=== PATIENT | female | born 2000 | race Hispanic/Latino ===

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

== ENCOUNTER 2019-01-25 17:49 | Emergency (ER) | payer MEDICAID, OTHER ==
[2019-01-25 18:15] LABS: BASOPHILS % (AUTO) 0.3 % (0.0-5.0); EOSINOPHILS % (AUTO) 2.3 % (0.0-8.0); HEMATOCRIT 38.9 % (36-48); LYMPHOCYTES % (AUTO) 34.5 % (21.0-51.0); MEAN CORPUSCULAR HEMOGLOBIN 29.4 pg (27.0-33.0); MEAN CORPUSCULAR HGB CONC 33.2 g/dL (32.0-36.0); MEAN CORPUSCULAR VOLUME 88.4 fL (80-100); MONOCYTES % (AUTO) 8.7 % (3.0-13.0); NEUTROPHILS % (AUTO) 54.2 % (40.0-77.0); PLATELET COUNT (AUTO) 309 K/uL (130-400); RED CELL DISTRIBUTION WIDTH 13.9 % (11.0-15.5)
[2019-01-25 18:23] LABS: CREATININE 0.8 mg/dL (0.5-1.5)
[2019-01-25 18:28] LABS: ALBUMIN 3.7 g/dL (3.5-5.0); BILIRUBIN,TOTAL 0.3 mg/dL (0.2-1.0); TOTAL PROTEIN, SERUM 7.7 g/dL (6.0-8.3)
[2019-01-25] MEDS ORDERED: AZITHROMYCIN 250 MG TABLET PO ONE (18:35)
[2019-01-25] MEDS ORDERED: CEFTRIAXONE SODIUM 500 MG VIAL ONE (18:35)
[2019-01-25] MEDS ORDERED: ACETAMINOPHEN EXTRA STRENGTH 500 MG TABLET ONE (18:36)
[2019-01-25 19:44] LABS: APPEARANCE,URINE Clear (CLEAR); BILIRUBIN,URINE Negative (NEGATIVE); COLOR,URINE Yellow (YELLOW); GLUCOSE, URINE (UA) Negative (NEGATIVE); KETONES,URINE Negative (NEGATIVE); LEUKOCYTE ESTERASE ,URINE Negative (NEGATIVE); NITRATE,URINE Negative (NEGATIVE); OCCULT BLOOD,URINE Negative (NEGATIVE); PROTEIN,URINE Negative (NEGATIVE)
[2019-01-25 19:45] LABS: HCG,QUAL RESULT NEGATIVE (NEGATIVE)
== END 2019-01-25 19:56 | disposition home or self-care (01) ==
LOC: EDH 17:49
DX: R10.2 Pelvic and perineal pain (principal); R11.0 Nausea; Z72.0 Tobacco use; Z98.890 Other specified postprocedural states
CPT/HCPCS: 36415; 80053; 81003; 81025; 84702; 85025; 87486; 87797; 96372; 99284; J0696

== ENCOUNTER 2019-03-16 20:23 | Emergency (ER) | payer OTHER ==
[2019-03-16 20:52] LABS: APPEARANCE,URINE Clear (CLEAR); BILIRUBIN,URINE Negative (NEGATIVE); COLOR,URINE Yellow (YELLOW); GLUCOSE, URINE (UA) Negative (NEGATIVE); KETONES,URINE Negative (NEGATIVE); LEUKOCYTE ESTERASE ,URINE Negative (NEGATIVE); NITRATE,URINE Negative (NEGATIVE); OCCULT BLOOD,URINE Negative (NEGATIVE); PH,URINE 6.5 (5.0-8.0); PROTEIN,URINE Negative (NEGATIVE)
[2019-03-16 20:57] LABS: HCG,QUAL RESULT NEGATIVE (NEGATIVE)
[2019-03-16] MEDS ORDERED: DEXAMETHASONE SOD PHOSPHATE 10MG/ML 1ML VIAL ONE (21:25)
[2019-03-16] MEDS ORDERED: KETOROLAC TROMETHAMINE 60 MG/2 ML VIAL ONE (21:25)
[2019-03-16] MEDS ORDERED: OXYMETAZOLINE HCL SPRAY 15 ML BOTTLE ONE (21:25)
== END 2019-03-16 22:20 | disposition home or self-care (01) ==
LOC: EDH 20:23
DX: J01.10 Acute frontal sinusitis, unspecified (principal); Z72.0 Tobacco use
CPT/HCPCS: 81003; 81025; 87804 ×2; 96372 ×2; 99284; J1100; J1885

== ENCOUNTER 2019-03-27 08:26 | Emergency (ER) | payer SELFPAY | END 2019-03-27 09:49 | disposition home or self-care (01) | LOC: EDH 08:26 | DX: J11.1 Influenza due to unidentified influenza virus with other respiratory manifestations (principal); Z90.49 Acquired absence of other specified parts of digestive tract | CPT/HCPCS: 71046 ==

== ENCOUNTER 2022-01-28 09:33 | Emergency (ER) | payer OTHER ==
[~2022-01-28] VITALS: Ht 154.9 cm; Wt 108.4 kg
[2022-01-28 10:08] LABS: BASOPHILS % (AUTO) 0.3 % (0.0-5.0); EOSINOPHILS % (AUTO) 1.3 % (0.0-8.0); HEMATOCRIT 39.8 % (36-48); LYMPHOCYTES % (AUTO) 28.6 % (21.0-51.0); MEAN CORPUSCULAR HEMOGLOBIN 30.5 pg (27.0-33.0); MEAN CORPUSCULAR HGB CONC 33.2 g/dL (32.0-36.0); MEAN CORPUSCULAR VOLUME 91.9 fL (79-99); MONOCYTES % (AUTO) 5.1 % (3.0-13.0); NEUTROPHILS % (AUTO) 64.5 % (40.0-77.0); PLATELET COUNT (AUTO) 332 K/uL (130-400); RED BLOOD CELL COUNT(AUTO) 4.33 MIL/uL (4.00-5.50); RED CELL DISTRIBUTION WIDTH 13.1 % (11.0-15.5); WHITE BLOOD COUNT (AUTO) 12.3 K/uL (4.8-10.8)
[2022-01-28 10:17] LABS: CREATININE 0.7 mg/dL (0.5-1.5); POTASSIUM 4.2 mmol/L (3.5-5.1)
[2022-01-28 10:17] LABS: APPEARANCE,URINE CLEAR (CLEAR); BILIRUBIN,URINE NEGATIVE (NEGATIVE); COLOR,URINE YELLOW (YELLOW); GLUCOSE, URINE (UA) NEGATIVE (NEGATIVE); KETONES,URINE NEGATIVE (NEGATIVE); LEUKOCYTE ESTERASE ,URINE TRACE Leu/uL (NEGATIVE); NITRATE,URINE NEGATIVE (NEGATIVE); OCCULT BLOOD,URINE TRACE-INTACT (NEGATIVE); PROTEIN,URINE NEGATIVE (NEGATIVE)
[2022-01-28 10:32] LABS: BACTERIA,URINE Many /HPF (None Seen); SQUAMOUS EPITHELIAL CELL,UR Moderate /HPF (0-2); TRICHOMONAS,URINE Rare /LPF (None Seen)
[2022-01-28 10:43] LABS: ALBUMIN 3.5 g/dL (3.5-5.0); TOTAL PROTEIN, SERUM 7.2 g/dL (6.0-8.3)
[2022-01-28] MEDS ORDERED: ONDANSETRON 4MG INJ IVP ONE (12:30)
[2022-01-28] MEDS ORDERED: ONDANSETRON ODT 4MG TAB ONE (12:43)
[2022-01-28] MEDS ORDERED: ACET-66 PO (13:21)
[2022-01-28] MEDS ORDERED: ONDA4TAB10 PO (13:21)
[2022-01-28] MEDS ORDERED: DOXY1TAB8 PO (13:21)
[2022-01-28 13:49] VITALS: BP 133/69
== END 2022-01-28 13:31 | disposition home or self-care (01) ==
LOC: EDH 09:33
DX: O26.891 Other specified pregnancy related conditions, first trimester (principal); R10.30 Lower abdominal pain, unspecified; O21.9 Vomiting of pregnancy, unspecified; Z3A.01 Less than 8 weeks gestation of pregnancy
CPT/HCPCS: 36415; 76817; 80053; 81001; 84702; 85025; 86900; 86901; 87088; 96374; J2405

== ENCOUNTER 2022-02-12 14:47 | Emergency (ER) | payer MEDICAID ==
[~2022-02-12] VITALS: Ht 154.9 cm; Wt 117.9 kg
[~2022-02-12 14:47] MED LIST: ACET-66 PO; DOXY1TAB8 PO; ONDA4TAB10 PO
[2022-02-12 16:48] LABS: BASOPHILS % (AUTO) 0.4 % (0.0-5.0); EOSINOPHILS % (AUTO) 0.9 % (0.0-8.0); HEMATOCRIT 40.8 % (36-48); MEAN CORPUSCULAR HEMOGLOBIN 30.2 pg (27.0-33.0); MEAN CORPUSCULAR HGB CONC 32.8 g/dL (32.0-36.0); MEAN CORPUSCULAR VOLUME 91.9 fL (79-99); MONOCYTES % (AUTO) 7.6 % (3.0-13.0); NEUTROPHILS % (AUTO) 67.7 % (40.0-77.0); PLATELET COUNT (AUTO) 324 K/uL (130-400); RED BLOOD CELL COUNT(AUTO) 4.44 MIL/uL (4.00-5.50); RED CELL DISTRIBUTION WIDTH 12.5 % (11.0-15.5); WHITE BLOOD COUNT (AUTO) 16.6 K/uL (4.8-10.8)
[2022-02-12 16:58] LABS: CREATININE 0.7 mg/dL (0.5-1.5); POTASSIUM 4.1 mmol/L (3.5-5.1)
[2022-02-12 17:24] LABS: ALBUMIN 3.7 g/dL (3.5-5.0); TOTAL PROTEIN, SERUM 7.5 g/dL (6.0-8.3)
[2022-02-12 17:30] LABS: APPEARANCE,URINE CLEAR (CLEAR); BILIRUBIN,URINE NEGATIVE (NEGATIVE); COLOR,URINE YELLOW (YELLOW); GLUCOSE, URINE (UA) NEGATIVE (NEGATIVE); KETONES,URINE NEGATIVE (NEGATIVE); LEUKOCYTE ESTERASE ,URINE 25 Leu/uL (NEGATIVE); NITRATE,URINE NEGATIVE (NEGATIVE); PROTEIN,URINE NEGATIVE (NEGATIVE); UROBILINOGEN,URINE 6 mg/dL (0.2-1.0)
[2022-02-12] MEDS ORDERED: FAMOTIDINE 20MG VIAL IV ONE (17:30)
[2022-02-12] MEDS ORDERED: 0.9%NACL 1000ML 1,000 ML IV ONE (17:30)
[2022-02-12] MEDS ORDERED: ONDANSETRON 4MG INJ IVP ONE (17:30)
[2022-02-12 17:40] LABS: BACTERIA,URINE FEW /HPF (None Seen); MUCUS,URINE RARE LPF (None Seen); SQUAMOUS EPITHELIAL CELL,UR FEW /HPF (0-2)
[2022-02-12] MEDS ORDERED: CEFTRIAXONE 1G VIAL IVP ONE (18:00)
[2022-02-12] MEDS ORDERED: ONDA4TAB10 PO (18:10)
[2022-02-12] MEDS ORDERED: CEPH500B PO (18:10)
[2022-02-12 18:47] VITALS: BP 132/78
== END 2022-02-12 18:48 | disposition home or self-care (01) ==
LOC: EDH 14:47
DX: O23.41 Unspecified infection of urinary tract in pregnancy, first trimester (principal); N39.0 Urinary tract infection, site not specified; R19.7 Diarrhea, unspecified; Z3A.01 Less than 8 weeks gestation of pregnancy
CPT/HCPCS: 99284; 96374; 76801; 96375; 96361; 80053; 84702; 83690; 85025; 87088; 81001; 36415; J7030; J0696; J2405; S0028; 81025; J3490

== ENCOUNTER 2022-02-20 16:34 | Emergency (ER) | payer MEDICAID ==
[~2022-02-20] VITALS: Ht 154.9 cm; Wt 117.9 kg
[~2022-02-20 16:34] MED LIST changes: +CEPH500B PO
[2022-02-20 17:04] VITALS: BP 120/78
[2022-02-20] MEDS ORDERED: ACETAMINOPHEN 500 MG TABLET PO ONE (17:30)
[2022-02-20 18:11] LABS: APPEARANCE,URINE CLOUDY (CLEAR); BILIRUBIN,URINE NEGATIVE (NEGATIVE); COLOR,URINE YELLOW (YELLOW); GLUCOSE, URINE (UA) NEGATIVE (NEGATIVE); KETONES,URINE 20 mg/dL (NEGATIVE); LEUKOCYTE ESTERASE ,URINE 250 Leu/uL (NEGATIVE); NITRATE,URINE NEGATIVE (NEGATIVE); OCCULT BLOOD,URINE NEGATIVE (NEGATIVE); PH,URINE 6.5 (5.0-8.0); PROTEIN,URINE 10 mg/dL (NEGATIVE)
[2022-02-20 18:19] LABS: BACTERIA,URINE FEW /HPF (None Seen); MUCUS,URINE RARE LPF (None Seen); SQUAMOUS EPITHELIAL CELL,UR MANY /HPF (0-2); WBC,URINE 26-50 /HPF (0-1)
[2022-02-20 18:23] LABS: BASOPHILS % (AUTO) 0.2 % (0.0-5.0); EOSINOPHILS % (AUTO) 1.3 % (0.0-8.0); HEMATOCRIT 41.6 % (36-48); LYMPHOCYTES % (AUTO) 10.1 % (21.0-51.0); MEAN CORPUSCULAR HEMOGLOBIN 30.3 pg (27.0-33.0); MEAN CORPUSCULAR HGB CONC 33.2 g/dL (32.0-36.0); MEAN CORPUSCULAR VOLUME 91.2 fL (79-99); MONOCYTES % (AUTO) 6.5 % (3.0-13.0); NEUTROPHILS % (AUTO) 81.6 % (40.0-77.0); PLATELET COUNT (AUTO) 317 K/uL (130-400); RED BLOOD CELL COUNT(AUTO) 4.56 MIL/uL (4.00-5.50); RED CELL DISTRIBUTION WIDTH 12.5 % (11.0-15.5); WHITE BLOOD COUNT (AUTO) 17.7 K/uL (4.8-10.8)
[2022-02-20 18:34] LABS: CREATININE 0.6 mg/dL (0.5-1.5); POTASSIUM 3.7 mmol/L (3.5-5.1)
[2022-02-20 18:39] LABS: ALBUMIN 3.7 g/dL (3.5-5.0); TOTAL PROTEIN, SERUM 7.7 g/dL (6.0-8.3)
[2022-02-20] MEDS ORDERED: CEFTRIAXONE 1G VIAL IVP ONE (19:00)
[2022-02-20] MEDS ORDERED: 0.9%NACL 1000ML 1,000 ML IV ONE (19:00)
[2022-02-20] MEDS ORDERED: ONDANSETRON ODT 4MG TAB SL ONE (19:30)
[2022-02-20] MEDS ORDERED: CEPH500B PO (19:53)
[2022-02-20] MEDS ORDERED: ACET-66 PO (19:53)
== END 2022-02-20 20:05 | disposition home or self-care (01) ==
LOC: EDH 16:34
DX: O98.511 Other viral diseases complicating pregnancy, first trimester (principal); U07.1 COVID-19; O23.41 Unspecified infection of urinary tract in pregnancy, first trimester; N39.0 Urinary tract infection, site not specified; Z3A.08 8 weeks gestation of pregnancy; Z79.899 Other long term (current) drug therapy
CPT/HCPCS: 99284; 96374; 76801; 87635; 80053; 85025; 87088; 87880; 87804 ×2; 81001; 36415; C9803; J0696

== ENCOUNTER 2022-04-07 18:23 | Emergency (ER) | payer MEDICAID ==
[~2022-04-07] VITALS: Ht 154.9 cm; Wt 117.9 kg
[2022-04-07 19:00] LABS: APPEARANCE,URINE CLEAR (CLEAR); BILIRUBIN,URINE NEGATIVE (NEGATIVE); COLOR,URINE YELLOW (YELLOW); GLUCOSE, URINE (UA) NEGATIVE (NEGATIVE); KETONES,URINE NEGATIVE (NEGATIVE); LEUKOCYTE ESTERASE ,URINE 75 Leu/uL (NEGATIVE); NITRATE,URINE NEGATIVE (NEGATIVE); OCCULT BLOOD,URINE NEGATIVE (NEGATIVE); PROTEIN,URINE 30 mg/dL (NEGATIVE)
[2022-04-07 19:02] LABS: HCG,QUALITATIVE URINE POSITIVE (NEGATIVE)
[2022-04-07 19:05] LABS: BACTERIA,URINE FEW /HPF (None Seen); MUCUS,URINE RARE LPF (None Seen); SQUAMOUS EPITHELIAL CELL,UR FEW /HPF (0-2)
[2022-04-07 19:09] LABS: BASOPHILS % (AUTO) 0.4 % (0.0-5.0); EOSINOPHILS % (AUTO) 1.4 % (0.0-8.0); HEMATOCRIT 33.8 % (36-48); LYMPHOCYTES % (AUTO) 19.4 % (21.0-51.0); MEAN CORPUSCULAR HEMOGLOBIN 31.1 pg (27.0-33.0); MEAN CORPUSCULAR HGB CONC 33.7 g/dL (32.0-36.0); MEAN CORPUSCULAR VOLUME 92.1 fL (79-99); MONOCYTES % (AUTO) 7.5 % (3.0-13.0); NEUTROPHILS % (AUTO) 70.9 % (40.0-77.0); PLATELET COUNT (AUTO) 314 K/uL (130-400); RED BLOOD CELL COUNT(AUTO) 3.67 MIL/uL (4.00-5.50); RED CELL DISTRIBUTION WIDTH 13.1 % (11.0-15.5); WHITE BLOOD COUNT (AUTO) 14.1 K/uL (4.8-10.8)
[2022-04-07 19:16] LABS: CREATININE 0.6 mg/dL (0.5-1.5); POTASSIUM 3.7 mmol/L (3.5-5.1)
[2022-04-07 19:26] LABS: ALBUMIN 2.9 g/dL (3.5-5.0); TOTAL PROTEIN, SERUM 6.8 g/dL (6.0-8.3)
[2022-04-07 22:43] VITALS: BP 115/60
== END 2022-04-07 22:47 | disposition home or self-care (01) ==
LOC: EDH 18:23
DX: O99.891 Other specified diseases and conditions complicating pregnancy (principal); O30.042 Twin pregnancy, dichorionic/diamniotic, second trimester; T59.811A Toxic effect of smoke, accidental (unintentional), initial encounter; Z3A.15 15 weeks gestation of pregnancy; Z79.899 Other long term (current) drug therapy; Y92.89 Other specified places as the place of occurrence of the external cause
CPT/HCPCS: 36415; 76805; 80053; 81001; 81025; 84702; 85025; 87088

== ENCOUNTER 2022-04-28 01:20 | Observation (INO) | payer MEDICAID ==
[~2022-04-28] VITALS: Ht 154.9 cm; Wt 126.6 kg
[2022-04-28 01:22] VITALS: BP 139/93
[2022-04-28 01:47] LABS: APPEARANCE,URINE CLOUDY (CLEAR); BILIRUBIN,URINE NEGATIVE (NEGATIVE); COLOR,URINE YELLOW (YELLOW); GLUCOSE, URINE (UA) NEGATIVE (NEGATIVE); KETONES,URINE NEGATIVE (NEGATIVE); LEUKOCYTE ESTERASE ,URINE 500 Leu/uL (NEGATIVE); NITRATE,URINE NEGATIVE (NEGATIVE); OCCULT BLOOD,URINE NEGATIVE (NEGATIVE); PROTEIN,URINE 30 mg/dL (NEGATIVE)
[2022-04-28 01:56] LABS: BACTERIA,URINE FEW /HPF (None Seen); MUCUS,URINE RARE LPF (None Seen); SQUAMOUS EPITHELIAL CELL,UR MOD /HPF (0-2)
[2022-04-28] MEDS ORDERED: CEFTRIAXONE 500MG VIAL IM ONE (02:30)
[2022-04-28] MEDS ORDERED: CEFTRIAXONE 1G VIAL IM ONE (03:00)
== END 2022-04-28 03:30 | disposition home or self-care (01) ==
LOC: EDH 01:20 → LDH 01:21 → EDH 01:27
PROVIDERS: ADMIT Obstetrics & Gynecology; ATTEND Obstetrics & Gynecology
DX: O26.892 Other specified pregnancy related conditions, second trimester (principal); R10.30 Lower abdominal pain, unspecified; R10.2 Pelvic and perineal pain; R21 Rash and other nonspecific skin eruption; Z3A.20 20 weeks gestation of pregnancy
CPT/HCPCS: 96372; 76805; 87088; 81001; 76810; G0378 ×2; G0379; J0696; 76801